=== PATIENT | female | born 1985 | race Caucasian/White ===

== ENCOUNTER 2017-02-08 06:40 | Day surgery (SDC) | payer OTHER ==
[~2017-02-08] VITALS: Ht 180.3 cm; Wt 159.1 kg
[2017-02-08 07:05] VITALS: BP 172/116; PULSE 81; RESP 20; TEMP 98.2; O2SAT 93
[2017-02-08] MEDS ORDERED: BROM500T PO (07:24)
[2017-02-08] MEDS ORDERED: MAXA10TA2 (07:24)
[2017-02-08] MEDS ORDERED: IRON18TA (07:24)
[2017-02-08] MEDS ORDERED: DOCO200C (07:24)
[2017-02-08] MEDS ORDERED: D31000CA (07:24)
[2017-02-08] MEDS ORDERED: BIOT1CAP2 PO (07:24)
[2017-02-08] MEDS ORDERED: FISH1200 (07:24)
[2017-02-08 07:50] VITALS: BP 162/95
[2017-02-08] MEDS ORDERED: SODIUM CHLOR 0.9% 1000 ML INJ 1,000 ML IV SCH (08:00)
[2017-02-08 08:05] LABS: AUTOMATED NEUTROPHIL # 6.7 TH/MM3 (1.8-7.7); BASOPHIL # 0.1 TH/MM3 (0-0.2); BASOPHIL % 0.6 % (0.0-2.0); EOSINOPHIL # 0.3 TH/MM3 (0-0.4); EOSINOPHIL % 2.4 % (0.0-4.0); HEMATOCRIT 38.1 % (35.0-46.0); HEMO FLAGS DIFF FINAL; LYMPH % 33.5 % (9.0-44.0); LYMPHOCYTE # 3.8 TH/MM3 (1.0-4.8); MEAN CELL VOLUME 71.7 FL (80.0-100.0); MEAN CORPUSCULAR HEMOGLOBIN 22.8 PG (27.0-34.0); MEAN CORPUSCULAR HGB CONC 31.9 % (32.0-36.0); MONO % 4.5 % (0.0-8.0); PLATELET COUNT 348 TH/MM3 (150-450); RED BLOOD COUNT 5.32 MIL/MM3 (4.00-5.30); RED CELL DISTRIBUTION WIDTH 16.2 % (11.6-17.2); WHITE BLOOD COUNT 11.3 TH/MM3 (4.0-11.0)
[2017-02-08 08:07] LABS: APTT (PATIENT) 31.6 SEC (24.3-30.1); INTERNATIONAL NORMALIZED RATIO 0.9 RATIO; PROTHROMBIN TIME - PATIENT 10.2 SEC (9.8-11.6)
[2017-02-08 08:17] LABS: BICARBONATE 26.1 MEQ/L (21.0-32.0); POTASSIUM 4.1 MEQ/L (3.5-5.1)
--- NOTE | 2017-02-08 09:28 | PD.RAD ---
Post Procedure Progress Note Pre Procedure Diagnosis: (1) Headache Post Procedure Diagnosis: (1) Headache Procedure Date: Feb 08, 2017 Supervising Radiologist: South Morrison Proceduralist/Assist: RT Tyson(R)() Anesthesia: Local Plan of Activity Patient to Unit: ROPU Patient Condition: Good Additional Comments: L3-4 puncture. OP 25 cmH20. See PACS Report for procedural detail/treatment South Morrison MD Feb 08, 2017 09:28
[2017-02-08 10:28] LABS: CSF LYMPHOCYTES 100 %; CSF NEUTROPHILS 0 %; GROSS BLOOD TUBE #1 0 (0); GROSS BLOOD TUBE #2 0 (0); GROSS BLOOD TUBE #3 0 (0); GROSS BLOOD TUBE #4 0 (0); SUPERNATE COLOR TUBE #1 CLEAR (CLEAR); SUPERNATE COLOR TUBE #2 CLEAR (CLEAR); SUPERNATE COLOR TUBE #3 CLEAR (CLEAR); SUPERNATE COLOR TUBE #4 CLEAR (CLEAR); VOLUME TUBE # 1 2.2 ML; VOLUME TUBE # 2 1.8 ML; VOLUME TUBE # 3 2.4 ML; VOLUME TUBE # 4 2.8 ML; WBC TUBE #4 2 /MM3 (0-10)
--- NOTE | 2017-02-08 11:47 | RADRPT ---
EXAM DATE/TIME: 02/08/2017 08:50 [place] COMPARISON: No previous studies available for comparison. INDICATIONS : Patient is in need of a lumbar puncture for evaluation of CSF due to continuous migraine headaches, v ision problems. MEDICAL HISTORY : History of empty sella turcica, pituitary compression, asthma, dizzness, vertigo, imbalanced gait. SURGICAL HISTORY : History of carpal tunnel surgery, left foot fracture repair, tonsillectomy. ENCOUNTER: Initial ACUITY: 1 month PAIN SCORE: 0/10 LUMBAR PUNCTURE TIME: 0838 hours FLUORO TIME: 0.23 minutes IMAGE SERIES: 0 ACCESS LEVEL: L3-4 OPENING PRESSURE: 25 cm of water CLOSING PRESSURE: Not requested. FLUID: 10 cc of clear CSF was collected and sent to the laboratory for analysis. PROCEDURE : 1. Fluoroscopic guided lumbar puncture. 2. Recording of opening pressure. The risks, benefits and alternatives to the procedure were explained and verbal and written consent w as obtained. The site was prepped in sterile fashion. Full sterile technique was used, including ca p, mask, sterile gloves and gown and a large sterile sheet. Hand hygiene and 2% chlorhexidine and/or betadine/alcohol prep was utilized per protocol for cutaneous antisepsis. The skin and subcutaneous tissues were infiltrated with local anesthetic solution. With fluoroscopic guidance the lumbar thecal sac was punctured at the above level described above and the opening pressure was recorded. The above described fluid was removed without difficulty. The patient tolerated the procedure well and there were no complications. CONCLUSION: Uncomplicated fluoroscopically guided lumbar puncture with pressures as above. South Morrison MD on February 08, 2017 at 11:45 Board Certified Radiologist. This report was verified electronically.
[2017-02-08 12:05] VITALS: BP 164/102; PULSE 86; RESP 18; TEMP 98.4; O2SAT 96
== END 2017-02-08 12:05 | disposition home or self-care (01) ==
LOC: HROP 06:40 → HRIP 06:41 → HROP 12:05
PROVIDERS: ATTEND Specialist
DX: R51 Headache (principal)
CPT/HCPCS: 62270; 77003; 80048; 82945; 84157; 85025; 85610; 85730; 86592; 89051; J7030

== ENCOUNTER 2017-02-10 10:27 | Emergency (ER) | payer OTHER ==
[~2017-02-10] VITALS: Ht 180.3 cm; Wt 170.0 kg
[~2017-02-10 10:27] MED LIST: BIOT1CAP2 PO; BROM500T PO; D31000CA; DOCO200C; FISH1200; IRON18TA; MAXA10TA2
[2017-02-10 10:31] VITALS: BP 201/104; PULSE 86; RESP 28; TEMP 98.1; O2SAT 96
[2017-02-10 11:16] VITALS: BP 173/90; PULSE 81; RESP 19; O2SAT 99
[2017-02-10] MEDS ORDERED: ONDANSETRON HCL 4 MG/2 ML VIAL IV ONE (11:45)
[2017-02-10] MEDS ORDERED: HYDROmorphone HCL PF 1 MG/ML VIAL IVS ONE (11:45)
[2017-02-10] MEDS ORDERED: KETOROLAC TROMETHAMINE 30 MG/ML (IVP) VIAL IVP ONE (11:45)
--- NOTE | 2017-02-10 12:00 | PD ---
HPI Chief Complaint: Pain: Acute or Chronic Time Seen by Provider: 11:11 Travel History International Travel<30 days: No Contact w/Intl Traveler<30days: No Traveled to known affect area: No History of Present Illness HPI The patient was seen and examined in the presence of the nurse. This patient has chronic migraines and daily headaches. She follows with neurologist Dr. Harmon. She had an MRI of the brain one month ago and had an LP a few days ago. She says the doctor wanted to check her opening pressure. Patient reports that she got a different and worse type of headache after the LP. It is positional and better when she is lying flat. No fever or head injury. No muscle weakness or sensory loss or speech slurring or confusion. Symptoms severity is moderate. Duration 3 days. No alleviating factors. She has taken only Tylenol for it which has not helped. PFSH Past Medical History Cancer: No Cardiovascular Problems: No Diabetes: No Endocrine: No Genitourinary: No Hepatitis: No Hiatal Hernia: No Immune Disorder: No Musculoskeletal: Yes (hx broken left foot, surg x 2, 2003) Neurologic: Yes (headaches, blurry vision, change in peripheral vision) Psychiatric: No Reproductive: Yes (PCOS) Respiratory: Yes (PNA several times, asthma) Immunizations Current: No Thyroid Disease: No ?: Not LMP: 10/12/16 : 2 Miscarriage: 2 Ovarian Cysts: Yes Past Surgical History AICD: No Joint Replacement: No Pacemaker: No Other Surgery: Yes Social History Alcohol Use: Yes (OCC) Tobacco Use: No Substance Use: No Allergies-Medications (Allergen,Severity, Reaction): Coded Allergies: Cranberry (Verified Allergy, Severe, Anaphylaxis, 02/10/17) lips and tongue swelling Neosporin (Verified Allergy, Severe, Burning, 02/10/17) skin sloughs off Reported Meds & Prescriptions Reported Meds & Active Scripts Active Reported Biotin 1 Mg Cap 1 Mg PO Iron (Ferrous Sulfate) 90 Mg Tab D3 (Cholecalciferol) 1,000 Unit Cap 1 Fish Oil 1200 mg ([place]-3 Fatty Acids) 1 Cap Cap Bromelain (Bromelains) 500 Mg Tab 500 Mg PO Dha (Docosahexaenoic Acid) 200 Mg Cap Maxalt (Rizatriptan Benzoate) 10 Mg Tab Review of Systems General / Constitutional: No: Fever Eyes: No: Visual changes HENT: Positive: Headaches Cardiovascular: No: Chest Pain or Discomfort Respiratory: No: Shortness of Breath Gastrointestinal: No: Abdominal Pain Genitourinary: No: Dysuria Musculoskeletal: No: Pain Skin: No Rash Neurologic: Positive: Headache, No: Weakness Psychiatric: No: Depression Endocrine: No: Polydipsia Hematologic/Lymphatic: No: Easy Bruising Physical Exam Narrative GENERAL: Well-nourished, well-developed patient with headache. SKIN: Focused skin assessment reveals no rash and nodules. Skin is Warm and dry. HEAD: Atraumatic. Normocephalic. EYES: Pupils equal and round. No scleral icterus. No injection or drainage. ENT: No nasal bleeding or discharge. Mucous membranes pink and moist. NECK: Trachea midline. No JVD. No meningeal signs CARDIOVASCULAR: Regular rate and rhythm. No murmur appreciated. RESPIRATORY: No accessory muscle use. Clear to auscultation. Breath sounds equal bilaterally. GASTROINTESTINAL: Abdomen soft, non-tender, nondistended. Hepatic and splenic margins not palpable. MUSCULOSKELETAL: No obvious deformities. No clubbing. No cyanosis. No edema. LP site is noted as a little red dot but no sign of infection NEUROLOGICAL: Awake and alert. No obvious cranial nerve deficits. Motor grossly within normal limits. Normal speech. PSYCHIATRIC: Appropriate mood and affect; insight and judgment normal. Data Data Last Documented VS Vital Signs Date Time Temp Pulse Resp B/P Pulse Ox O2 Delivery O2 Flow Rate FiO2 02/10/17 11:16 81 19 173/90 99 Room Air 02/10/17 10:31 98.1 Orders Ondansetron Inj (Zofran Inj) (02/10/17 11:45) Ketorolac Inj (Toradol Inj) (02/10/17 11:45) Hydromorphone Pf Inj (Dilaudid Pf Inj) (02/10/17 11:45) [facility] Medical Decision Making Medical Screen Exam Complete: Yes Emergency Medical Condition: Yes Medical Record Reviewed: Yes Differential Diagnosis Post-LP headache, migraine, brain tumor Narrative Course I have reviewed the patient's electronic medical record. Patient had MRI a month ago and I don't feel needs emergent imaging today. She does follow regularly with the neurologist She is neurologically intact. She has a post-LP headache. I gave her injection of pain and nausea medication for symptom relief. Prescription written as well She should follow with her neurologist. We discussed blood patch therapy but I don't feel she is a candidate for this at this time. She hasn't tried anything but Tylenol at this point. Blood pressure initially quite elevated but is coming down spontaneously. Now 170 systolic Diagnosis Primary Impression: Post lumbar puncture headache Additional Impression: Accelerated hypertension Additional Instructions: The patient was advised to follow up with their physician and return if they worsen. The patient was warned about potential sedation for the medications they will receive on prescription. Check and record blood pressure daily Med/Other Pt SpecificInfo: Prescription(s) given Disposition: DISCHARGE HOME Condition: Stable Sherman Gomez MD Feb 10, 2017 11:59
[2017-02-10] MEDS ORDERED: TRAM50TA PO (12:05)
[2017-02-10 12:27] VITALS: BP 141/79; PULSE 59; RESP 20; O2SAT 97
[2017-02-10 13:50] VITALS: BP 138/67; PULSE 76; RESP 19; O2SAT 97
== END 2017-02-10 15:13 | disposition home or self-care (01) ==
LOC: NEPC 10:27
DX: G97.1 Other reaction to spinal and lumbar puncture (principal); Y84.4 Aspiration of fluid as the cause of abnormal reaction of the patient, or of later complication, without mention of misadventure at the time of the procedure; I10 Essential (primary) hypertension
CPT/HCPCS: 96374; 96375; 99284; J1170; J1885; J2405

== ENCOUNTER → 2017-02-11 | Day surgery (SDC) | payer OTHER ==
[~2017-02-11] VITALS: Ht 180.3 cm; Wt 187.4 kg
[~2017-02-11] MED LIST changes: +CHLORHEXIDINE GLUCONATE 2 % 1 PACK (2 CLOTHS) TOPICAL PRN; +INSULIN HUMAN REGULAR 1,000 UNITS/10 ML VIAL SQ PRN; +LACTATED RINGER'S 1000 ML IV PRN; +METOPROLOL TARTRATE 25 MG TAB PO PRN; +POVIDONE IODINE 5% (ANTISEPSIS KIT) 4 APPLICATIONS EACH NARE PRN; +SODIUM CHLORID 0.9% 500 ML IV PRN; +TRAM50TA PO
[2017-02-11 10:23] VITALS: BP 133/90; PULSE 76; RESP 18; TEMP 99; O2SAT 96
[2017-02-11 13:00] VITALS: BP 152/95; PULSE 66; RESP 18; TEMP 98.2; O2SAT 99
== END | disposition home or self-care (01) ==
LOC: HSDC 09:36
PROVIDERS: ATTEND Radiology Body Imaging
DX: G97.1 Other reaction to spinal and lumbar puncture (principal)
CPT/HCPCS: 62273